=== PATIENT | female | born 1960 | race Caucasian/White ===

== ENCOUNTER → 2020-08-04 01:32 | Outpatient (CLI) | payer OTHER, SELFPAY ==
[2020-08-04 19:16] LABS: SARS-CoV-2 RNA PCR Negative
== END ==
PROVIDERS: PCP Internal Medicine; Visit Provider Internal Medicine Gastroenterology
DX: Z01.812 Encounter for preprocedural laboratory examination (principal); Z20.822 Contact with and (suspected) exposure to COVID-19
CPT/HCPCS: C9803; U0003; U0005

== ENCOUNTER 2020-08-07 00:26 | Day surgery (SDC) | payer OTHER, SELFPAY ==
[2020-07-30 15:03] VITALS: BMI 33.8
[2020-08-07 06:55] VITALS: BP 133/70; PULSE 81; RESP 18; TEMP 36.8; O2SAT 98; BMI 34.0
[2020-08-07] MEDS: LACTATED RINGERS 1,000 ML 150 ML IV CONT (07:07)
--- NOTE | 2020-08-07 07:15 | WPDANESEPPF ---
Anes - Initial Pre Proc Eval Procedure: Operation Date: 08/07/20 08:00 Proposed Procedures p Esophagogastroduodenoscopy - Felix Lui MD Date/Time: 08/07/20 07:15 Surgeon: Felix Lui MD Pre Op Diagnosis: iron deficiency anemia Patient Data Age: 60 Gender: F Height: 1.57 m Weight: 84.3 kg Last Vital Signs Temp 36.8 C 08/07/20 06:55 Pulse 81 08/07/20 06:55 Resp 18 08/07/20 06:55 BP 133/70 08/07/20 06:55 Pulse Ox 98 08/07/20 06:55 Allergies Allergy/AdvReac Type Severity Reaction Status Date / Time Penicillins Allergy Intermediate Hives Verified 08/07/20 06:41 Home Medications Medication Instructions Recorded Confirmed Type aspirin 81 mg tablet,delayed 81 mg PO DAILY 02/23/19 08/07/20 History release colesevelam 625 mg tablet 1,975 mg PO BID 02/23/19 08/07/20 History ezetimibe 10 mg tablet 10 mg PO DAILY 02/23/19 08/07/20 History ferrous sulfate 325 mg (65 mg 325 mg PO BID 02/23/19 08/07/20 History iron) tablet krill oil 500 mg capsule 500 mg PO DAILY 02/23/19 08/07/20 History metformin 500 mg tablet 500 mg PO HS 02/23/19 08/07/20 History multivitamin 1 tablet PO DAILY #30 tablet 02/23/19 08/07/20 Rx lisinopril 10 mg PO DAILY 03/21/19 08/07/20 History metformin 1,000 mg PO ONCE 03/21/19 08/07/20 History docusate sodium 100 mg capsule 100 mg PO BID cap 06/05/20 08/07/20 History omeprazole 40 mg capsule,delayed 40 mg PO DAILY #30 cap 06/05/20 08/07/20 Rx release sitagliptin 100 mg tablet 100 mg PO DAILY 06/05/20 08/07/20 History calcium carbonate-vitamin D3 1 tablet PO DAILY 07/30/20 08/07/20 History [Caltrate with Vitamin D3] Patient hx anesthesia problems: none Family hx anesthesia problems: none PMFSH Past Medical History Medical History (Updated 08/06/20 @ 10:47 by Mian Lawton DO) Acute carpal tunnel syndrome Arthritis Diabetes Family history of colon cancer GERD (gastroesophageal reflux disease) Heart murmur High cholesterol Hypertension Surgical History Surgical History Previous section Family History Family History Father Alzheimer disease Mother Parkinson disease Social History Social History Smoking status: Never smoker Alcohol intake: unknown Substance use: never Substance use type: does not use Living arrangements: with family Spiritual care concerns: No Anes - Eval Final PreProcedure Day of Procedure 08/07/20 07:15 Patient weight: obese Heart: regular rate and rhythm Lungs: clear to auscultation and normal air movement Airway: Mallampati scale class II Neurological: alert and oriented Last oral intake: >/= 8 hours ASA classification: III Emergent: no Anesthetic plan: proceed Anesthesia type and monitoring: general GIVS and standard monitoring Informed Consent: The patient's anesthetic plan and its attendant risks and benefits were discussed with the patient/family/POA. Questions were solicited and answers provided to the satisfaction of the patient/family/POA.
--- NOTE | 2020-08-07 08:00 | PM.HPGS ---
History of Present Illness History of Present Illness Consent: Risks, benefits, and alternatives have been discussed and questions answered. Patient agrees to proceed with procedure. Chief complaint: iron deficiency anemia Narrative: Cassidy Childers is a 60 year old female with recurrent anemia, last colon without signs of bleeding, egd with ana ulcers. She is using her ppi again Review of Systems Constitutional: Constitutional: Denies headache(s) and Denies weakness Eyes: Eyes: Denies blurry vision ENT: Reports Normal hearing present, Denies headache(s) and Denies neck pain Cardiovascular: Cardiovascular: Denies chest pain and Denies dyspnea Respiratory: Respiratory: Denies dyspnea Gastrointestinal: Gastrointestinal: Reports no additional gastrointestinal complaints Genitourinary: Genitourinary: Denies dysuria Musculoskeletal: Musculoskeletal: Denies neck pain Integumentary/Breasts: Skin/Breast: Denies dry skin Neurologic: Reports Normal hearing present, Denies headache(s) and Denies weakness Psychiatric: Psychiatric: Denies anxiety Endocrine: Endocrine: Denies change in body appearance Hematologic/Lymphatic: Hematologic/Lymphatic: Denies easy bleeding Allergic/Immunologic: Allergic/Immunologic: Denies urticaria PMFSH Past Medical History Medical History (Updated 08/07/20 @ 08:00 by Felix Lui MD) Acute carpal tunnel syndrome Arthritis Diabetes Family history of colon cancer GERD (gastroesophageal reflux disease) Heart murmur High cholesterol Hypertension Iron deficiency anemia Surgical History Surgical History Previous section Family History Family History Father Alzheimer disease Mother Parkinson disease Social History Social History Smoking status: Never smoker Alcohol intake: unknown Substance use: never Substance use type: does not use Living arrangements: with family Spiritual care concerns: No Meds Home Medications and Allergies Home Medications Medication Instructions Recorded Confirmed Type aspirin 81 mg tablet,delayed 81 mg PO DAILY 02/23/19 08/07/20 History release colesevelam 625 mg tablet 1,975 mg PO BID 02/23/19 08/07/20 History ezetimibe 10 mg tablet 10 mg PO DAILY 02/23/19 08/07/20 History ferrous sulfate 325 mg (65 mg 325 mg PO BID 02/23/19 08/07/20 History iron) tablet krill oil 500 mg capsule 500 mg PO DAILY 02/23/19 08/07/20 History metformin 500 mg tablet 500 mg PO HS 02/23/19 08/07/20 History multivitamin 1 tablet PO DAILY #30 tablet 02/23/19 08/07/20 Rx lisinopril 10 mg PO DAILY 03/21/19 08/07/20 History metformin 1,000 mg PO ONCE 03/21/19 08/07/20 History docusate sodium 100 mg capsule 100 mg PO BID cap 06/05/20 08/07/20 History omeprazole 40 mg capsule,delayed 40 mg PO DAILY #30 cap 06/05/20 08/07/20 Rx release sitagliptin 100 mg tablet 100 mg PO DAILY 06/05/20 08/07/20 History calcium carbonate-vitamin D3 1 tablet PO DAILY 07/30/20 08/07/20 History [Caltrate with Vitamin D3] Allergies Allergy/AdvReac Type Severity Reaction Status Date / Time Penicillins Allergy Intermediate Hives Verified 08/07/20 06:41 Vital Signs Vital Signs - 24 hr 08/07/20 06:55 Temperature 98.2 F Pulse Rate 81 Respiratory Rate 18 Blood Pressure 133/70 Pulse Oximetry 98 Exam Const: General: comfortable and no acute distress HENMT: General nose exam: Normal nares present Eyes: General: appearance normal, both eyes and all related structures Neck: Neck: no JVD Resp: Auscultation: clear to auscultation bilaterally Cardio: Rate: regular rate Rhythm: regular rhythm GI: Inspection: non-distended GI Palp: Yes Soft to palpation Skin: General skin exam: normal color Neuro: General: gait normal Speech: normal speech Ext
[2020-08-07] MEDS: BENZOCAINE (*SP) 60 ML SPRAY CAN (HURRICAINE) 1 SPRAY MUCOUS MEM (08:01)
[2020-08-07 08:10] VITALS: BP 137/62; PULSE 70; RESP 18; O2SAT 99
[2020-08-07 08:20] VITALS: BP 135/74; PULSE 72; RESP 20; O2SAT 100
[2020-08-07 08:30] VITALS: BP 125/69; PULSE 64; RESP 20; O2SAT 99
== END 2020-08-07 08:41 | disposition home or self-care (01) ==
PROVIDERS: PCP Internal Medicine; Visit Provider Internal Medicine Gastroenterology
PROC: 0DJ08ZZ Inspection of Upper Intestinal Tract, Via Natural or Artificial Opening Endoscopic (ICD-10-PCS; CPT 43235; principal; 2020-08-07 08:00)
DX: D50.0 Iron deficiency anemia secondary to blood loss (chronic) (principal); K44.9 Diaphragmatic hernia without obstruction or gangrene; K31.89 Other diseases of stomach and duodenum; M19.90 Unspecified osteoarthritis, unspecified site; E11.9 Type 2 diabetes mellitus without complications; K21.9 Gastro-esophageal reflux disease without esophagitis; R01.1 Cardiac murmur, unspecified; E78.00 Pure hypercholesterolemia, unspecified; I10 Essential (primary) hypertension; Z79.82 Long term (current) use of aspirin; Z79.84 Long term (current) use of oral hypoglycemic drugs
CPT/HCPCS: 43235; C9803; J2704; J7120; U0003; U0005

== ENCOUNTER 2020-08-08 06:06 | Outpatient (CLI) | payer OTHER, SELFPAY ==
--- NOTE | 2020-08-08 06:51 | SUR.OPER ---
Patient brought to GI Lab. Instructions for patient undergoing Capsule Endoscopy reviewed with patient. Consent form signed. Sensor array applied to patient's abdomen and connected to recorded. Patient swallowed capsule with 12 ozs of water infused with Simethicone. Patient instructed they may have clear liquids at 0830 this AM and eat or drink at 1030 this AM. Patient instructed to return to GI Lab at 1500 this afternoon for removal of recording device and to call [phone] or to return to the hospital if any nausea and vomiting or abdominal pain is experienced.
== END 2020-08-08 06:07 | disposition home or self-care (01) ==
LOC: ANHENDO 06:06
PROVIDERS: PCP Internal Medicine; Visit Provider Internal Medicine Gastroenterology
PROC: 0DJ07ZZ Inspection of Upper Intestinal Tract, Via Natural or Artificial Opening (ICD-10-PCS; CPT 91110; principal; 2020-08-08 07:00)
DX: D50.0 Iron deficiency anemia secondary to blood loss (chronic) (principal)
CPT/HCPCS: 91110

== ENCOUNTER → 2020-09-10 08:04 | Outpatient (CLI) | payer OTHER, SELFPAY ==
--- NOTE | ~2020-09-10 | CT_ITS ---
EXAMINATION: CT abdomen w con EXAM DATE: 09/10/2020 08:47 INDICATION: K44.9 - Diaphragmatic hernia without obstruction or gangrene. TECHNIQUE: Spiral CT of the abdomen was performed following intravenous injection of 100 mL Omnipaque 350. Axial, coronal and sagittal images of the abdomen were reviewed. The dose-length product (DLP ) for this examination was 541.62 mGy-cm. The exposure was tailored according to patient size (auto mA exposure control), and iterative reconstruction (ASIR) was used as additional dose reduction techn ique. There is no prior study for comparison. FINDINGS: The liver, spleen, adrenal glands and pancreas are unremarkable. Gallbladder is unremarkab le. No biliary obstruction. Portal and splenic veins are patent. Kidneys enhance symmetrically. T here is no hydronephrosis. There is no retroperitoneal lymphadenopathy. Tiny umbilical fat-conta ining hernia. The appendix is normal. There is moderate-sized gastroesophageal hiatal hernia, gastric cardia is in trathoracic in position. There is moderate amount of colonic stool. No free intraperitoneal gas. The heart is normal in size. There are no pericardial or pleural effusions. The lung bases are unr emarkable. There are no osteoblastic or osteolytic lesions identified. IMPRESSION: Moderate-sized gastroesophageal hiatal hernia Reviewed, dictated and finalized at location A.
[2020-09-10 08:35] LABS: Estimated Glomerular Filt Rate 56
== END ==
PROVIDERS: Visit Provider Surgery
DX: K44.9 Diaphragmatic hernia without obstruction or gangrene (principal)
CPT/HCPCS: 74160; Q9967

== ENCOUNTER 2022-11-01 10:01 | Emergency (ER) | payer OTHER, SELFPAY ==
[2022-11-01 10:12] VITALS: BP 125/80; PULSE 87; RESP 20; TEMP 36.9; O2SAT 100
--- NOTE | 2022-11-01 10:23 | ED.FEMALEGU ---
HPI - Female Genitourinary General Chief complaint: Urogenital-Female Stated complaint: UTI symtoms History of Present Illness HPI Narrative: Patient presents with burning with urination low abdominal pain urinary frequency and voids small amounts. Patient denies any fever no flank pain no nausea no vomiting. Related Data Home Medications Medication Instructions Recorded Confirmed aspirin 81 mg tablet,delayed 81 mg PO DAILY 02/23/19 11/01/22 release (Shira Low Dose Aspirin) colesevelam 625 mg tablet (WelChol) 1,975 mg PO BID 02/23/19 11/01/22 ezetimibe 10 mg tablet 10 mg PO DAILY 02/23/19 11/01/22 ferrous sulfate 325 mg (65 mg 325 mg PO BID 02/23/19 11/01/22 iron) tablet (Feosol) krill oil 500 mg capsule 500 mg PO DAILY 02/23/19 11/01/22 metformin 500 mg tablet 500 mg PO HS 02/23/19 11/01/22 lisinopril 10 mg tablet 10 mg PO DAILY 03/21/19 11/01/22 metformin 500 mg tablet 1,000 mg PO ONCE 03/21/19 11/01/22 docusate sodium 100 mg capsule 100 mg PO BID 06/05/20 11/01/22 sitagliptin phosphate 100 mg 100 mg PO DAILY 06/05/20 11/01/22 tablet (Januvia) calcium carbonate 600 mg-vitamin 1 tablet PO DAILY 07/30/20 11/01/22 D3 20 mcg (800 unit) tablet (Caltrate with Vitamin D3) Allergies Allergy/AdvReac Type Severity Reaction Status Date / Time Penicillins Allergy Intermediate Hives Verified 11/01/22 10:14 Review of Systems Review of Systems: CONSTITUTIONAL: Denies fever, chills, or sweats. EYES: Denies visual changes, redness, or discharge. ENT: Denies rhinorrhea, congestion, sore throat, or otalgia. CARDIOVASCULAR: Denies chest pain, palpitations, or edema. RESPIRATORY: Denies cough or dyspnea. GASTROINTESTINAL: Denies abdominal pain, nausea, vomiting, or diarrhea. GENITOURINARY: Denies dysuria or hematuria. SKIN: Denies rash or itching. MUSCULOSKELETAL: Denies back pain, joint pain, or myalgia. NEUROLOGIC: Denies headache, numbness, or weakness. PSYCHIATRIC: Denies anxiety or depression. [facility] Past Medical History Medical History Arthritis Ld lesion, chronic Diabetes Family history of colon cancer GERD (gastroesophageal reflux disease) Heart murmur Hiatal hernia High cholesterol Hypertension Iron deficiency anemia Surgical History Surgical History Acute carpal tunnel syndrome Previous section Family History Family History Father Alzheimer disease Mother Parkinson disease Sibling Cancer Sibling Cancer Grandparent Diabetes mellitus Social History Social History Smoking status: Never smoker Alcohol intake: unknown Substance use: never Substance use type: does not use Living arrangements: with family Occupation/Education: occupation 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 There is no relevant family history pertinent to the presenting complaint Exam Narrative: GENERAL: Well-appearing, well-nourished, and in no acute distress. HEAD: Normocephalic, atraumatic. EYES: PERRLA and EOMI. ENT: Nares clear, no rhinorrhea or epistaxis. Mucous membranes moist. NECK: Supple. CHEST: Clear to auscultation. No respiratory distress. HEART: Regular rate and rhythm. No murmur heard. Normal peripheral pulses. ABDOMEN: Soft, nontender, nondistended, normal active bowel sounds. EXTREMITIES: Normal range of motion. No edema. SKIN: Warm, dry, no rash. NEURO: No focal deficits. Alert and oriented x3. Peggy Coma Scale Eye Opening: Spontaneous 4 Peggy Coma Scale Motor: Obeys Commands 6 Peggy Coma Scale Verbal: Oriented 5
== END 2022-11-01 10:30 | disposition home or self-care (01) ==
PROVIDERS: Emergency Provider Nurse Practitioner Family; PCP Internal Medicine
DX: N39.0 Urinary tract infection, site not specified (principal); M19.90 Unspecified osteoarthritis, unspecified site; E11.9 Type 2 diabetes mellitus without complications; K21.9 Gastro-esophageal reflux disease without esophagitis; R01.1 Cardiac murmur, unspecified; E78.00 Pure hypercholesterolemia, unspecified; I10 Essential (primary) hypertension; D50.9 Iron deficiency anemia, unspecified; Z79.82 Long term (current) use of aspirin; Z79.84 Long term (current) use of oral hypoglycemic drugs
CPT/HCPCS: 81003; 87077; 87086; 87186; 99213; G0463